=== PATIENT | female | born 1950 | race Caucasian/White ===

== ENCOUNTER 2016-11-11 18:32 | Emergency (ER) | payer MEDICARE, OTHER ==
[2016-11-11] MEDS ORDERED: Aspirin 81 MG Tab.Chew PO ONE (19:05)
[2016-11-11] MEDS ORDERED: Nitroglycerin 0.4 MG Tab.SL SL ONE ×2 (19:05→19:33)
--- NOTE | 2016-11-11 19:20 | EDM.PDOC ---
ED HPI GENERAL MEDICAL PROBLEM - General Chief Complaint: Chest Pain Stated Complaint: CHEST PAINS,ACHY IN JAW, [phone] Time Seen by Provider: 11/11/16 19:05 Source of Information: Reports: Patient History Limitations: Reports: No Limitations - History of Present Illness INITIAL COMMENTS - FREE TEXT/NARRATIVE: c/o upper midsternal chest pain radiating to jaw for 1.5 hours. Took one nitro [employer] with partial sx relief. On presentation pain 6/10 now 1/10 still achey in jaw area. 2 Previous NH. Stent posterior heart and one in femoral artery. Hx COPD. New carpet in [facility], questions chest pain from heart or reaction to glue smell. [place] started. No nausea. Has not had to use nitro previously. Stents and NH's 2007 and 2009 . Also Diabetic on insulin Primary care in [place]. Chest Pain Score (Numeric/FACES): 4 - Related Data Allergies Allergy/AdvReac Type Severity Reaction Status Date / Time metoprolol Allergy Bronchospas Verified 11/11/16 18:44 ms varenicline [From Chantix] Allergy Hallucinati Verified 11/11/16 18:44 ons Home Meds: Home Meds Clopidogrel [Plavix] 75 mg PO DAILY 11/11/16 [History] Diclofenac Potassium [Zipsor] 25 mg PO DAILY 11/11/16 [History] Fluticasone/Salmeterol [Advair Hfa 230-21 Mcg Inhaler] 8 gm INH DAILY 11/11/16 [ History] Ibuprofen [Motrin] 800 mg PO BID 11/11/16 [History] Insulin Glarg,Human.Rec.Analog [LantUS] 40 unit SQ BEDTIME 11/11/16 [History] Lisinopril/Hydrochlorothiazide [Lisinopril-Hctz 10-12.5 mg Tab] 0.5 tab PO DAILY 11/11/16 [History] Nitroglycerin [Nitrostat] 0.4 mg SL PRN 11/11/16 [History] Pantoprazole Sodium [Protonix] 40 mg PO DAILY 11/11/16 [History] Past Medical History Cardiovascular History: Reports: Hypertension, Stents Respiratory History: Reports: COPD Gastrointestinal History: Reports: GERD Endocrine/Metabolic History: Reports: Diabetes, Type II - Past Surgical History Cardiovascular Surgical History: Reports: Coronary Artery Stent, Other (See Below) Other Cardiovascular Surgeries/Procedures: fem stent right Musculoskeletal Surgical History: Reports: Other (See Below) Other Musculoskeletal Surgeries/Procedures:: laminectomy Social & Family History - Family History Family Medical History: Noncontributory - Tobacco Use Smoking Status *Q: Current Every Day Smoker Years of Tobacco use: 48 Packs/Tins Daily: 1 - Caffeine Use Caffeine Use: Reports: Coffee - Recreational Drug Use Recreational Drug Use: No ED ROS GENERAL - Review of Systems Review Of Systems: See Below Constitutional: Reports: No Symptoms HEENT: Reports: No Symptoms Respiratory: Reports: Other (upper chest feels tight chronic cough) Cardiovascular: Reports: Chest Pain. Denies: Edema, Lightheadedness, Orthopnea GI/Abdominal: Reports: No Symptoms, Abdominal Pain : Reports: No Symptoms Musculoskeletal: Reports: No Symptoms Skin: Reports: No Symptoms Neurological: Reports: No Symptoms ED EXAM, GENERAL - Physical Exam Exam: See Below Exam Limited By: No Limitations General Appearance: Alert, Anxious, Mild Distress, Obese Eye Exam: Bilateral Eye: EOMI, PERRL Ears: Normal External Exam, Normal TMs Nose: Normal Inspection Throat/Mouth: Normal Inspection Head: Atraumatic, Normocephalic Neck: Normal Inspection Respiratory/Chest: No Respiratory Distress, Crackles (fine bilateral bases, end pahse exp wheeze left base) Cardiovascular: Normal Peripheral Pulses, Regular Rate, Rhythm, No Murmur GI/Abdominal: Normal Bowel Sounds, Soft Back Exam: Normal Inspection Extremities: Normal Inspection, Pedal Edema (trace) Neurological: Alert, Oriented, Normal Cognition Psychiatric: Normal Affect Skin Exam: Warm, Dry, Intact, Other (face flushed) Course - Vital Signs Last Recorded V/S: Last Vital Signs Temp 96.7 F 11/11/16 20:01 Pulse 88 11/11/16 21:38 Resp 18 11/11/16 21:38 BP 137/78 11/11/16 21:38 Pulse Ox 99 11/11/16 21:38 - Orders/Labs/Meds Labs: Laboratory Tests 11/11/16 11/11/16 11/11/16 Range/Units 18:45 18:45 18:45 WBC 11.5 H (5.0-10.0) 10^3/uL RBC 4.07 L (4.2-5.4) 10^6/uL Hgb 12.3 (12.0-16.0) g/dL Hct 36.2 L (37.0-47.0) % MCV 88.9 (80-100) fL MCH 30.2 (27.0-34.0) pg MCHC 34.0 (33.0-35.0) g/dL Plt Count 289 (150-450) 10^3/uL Neut % (Auto) 68.7 (42.2-75.2) % Lymph % (Auto) 21.6 (20.5-50.1) % [place] % (Auto) 7.8 (2-8) % Eos % (Auto) 1.5 (1.0-3.0) % Baso % (Auto) 0.4 (0.0-1.0) % PT 8.8 L (9.0-12.0) SEC INR 0.9 (0.9-1.2) Sodium 139 (135-145) mmol/L Potassium 3.8 (3.6-5.0) mmol/L Chloride 103 (101-111) mmol/L Carbon Dioxide 27.0 (21.0-31.0) mmol/L Anion Gap 12.8 BUN 17 (7-18) mg/dL Creatinine 1.1 (0.6-1.3) mg/dL Est Cr Clr Drug Dosing 39.79 mL/min Estimated GFR (MDRD) 50 BUN/Creatinine Ratio 15.45 Glucose 171 H (74-105) mg/dL Calcium 8.9 (8.4-10.2) mg/dl Total Bilirubin 0.4 (0.2-1.0) mg/dL AST 19 (10-42) IU/L ALT 15 (10-60) IU/L Alkaline Phosphatase 66 (42-121) IU/L CK-MB (CK-2) (0.4-4.7) ng/mL Troponin I 0.02 (0.00-0.02) ng/ml B-Natriuretic Peptide 61 (0-100) pg/ml Total Protein 6.8 (6.7-8.2) g/dl Albumin 3.8 (3.2-5.5) g/dl Globulin 3.0 Albumin/Globulin Ratio 1.27 Amylase 34 (28-100) U/L Lipase 31 (22-51) U/L Urine Color (YELLOW) Urine Appearance (CLEAR) Urine pH (5.0-9.0) Ur Specific [place] (1.005-1.030) Urine Protein (NEGATIVE) Urine Glucose (UA) (NEGATIVE) Urine Ketones (NEGATIVE) Urine Occult Blood (NEGATIVE) Urine Nitrite (NEGATIVE) Urine Bilirubin (NEGATIVE) Urine Urobilinogen (0.2-1.0) mg/dL Ur Leukocyte Esterase (NEGATIVE) Urine RBC /HPF Urine WBC (0-5/HPF) /HPF Ur Epithelial Cells /HPF Urine Bacteria (0-FEW/HPF) /HPF 11/11/16 11/11/16 Range/Units 18:45 20:09 WBC (5.0-10.0) 10^3/uL RBC (4.2-5.4) 10^6/uL Hgb (12.0-16.0) g/dL Hct (37.0-47.0) % MCV (80-100) fL MCH (27.0-34.0) pg MCHC (33.0-35.0) g/dL Plt Count (150-450) 10^3/uL Neut % (Auto) (42.2-75.2) % Lymph % (Auto) (20.5-50.1) % [place] % (Auto) (2-8) % Eos % (Auto) (1.0-3.0) % Baso % (Auto) (0.0-1.0) % PT (9.0-12.0) SEC INR (0.9-1.2) Sodium (135-145) mmol/L Potassium (3.6-5.0) mmol/L Chloride (101-111) mmol/L Carbon Dioxide (21.0-31.0) mmol/L Anion Gap BUN (7-18) mg/dL Creatinine (0.6-1.3) mg/dL Est Cr Clr Drug Dosing mL/min Estimated GFR (MDRD) BUN/Creatinine Ratio Glucose (74-105) mg/dL Calcium (8.4-10.2) mg/dl Total Bilirubin (0.2-1.0) mg/dL AST (10-42) IU/L ALT (10-60) IU/L Alkaline Phosphatase (42-121) IU/L CK-MB (CK-2) 2.60 (0.4-4.7) ng/mL Troponin I (0.00-0.02) ng/ml B-Natriuretic Peptide (0-100) pg/ml Total Protein (6.7-8.2) g/dl Albumin (3.2-5.5) g/dl Globulin Albumin/Globulin Ratio Amylase (28-100) U/L Lipase (22-51) U/L Urine Color Yellow (YELLOW) Urine Appearance Clear (CLEAR) Urine pH 6.0 (5.0-9.0) Ur Specific [place] 1.010 (1.005-1.030) Urine Protein Negative (NEGATIVE) Urine Glucose (UA) Negative (NEGATIVE) Urine Ketones Negative (NEGATIVE) Urine Occult Blood Negative (NEGATIVE) Urine Nitrite Negative (NEGATIVE) Urine Bilirubin Negative (NEGATIVE) Urine Urobilinogen 0.2 (0.2-1.0) mg/dL Ur Leukocyte Esterase Negative (NEGATIVE) Urine RBC 0-5 /HPF Urine WBC 0-5 (0-5/HPF) /HPF Ur Epithelial Cells Few /HPF Urine Bacteria Occasional (0-FEW/HPF) /HPF Meds: Medications Discontinued Medications Generic Name Dose Route Start Last Admin Trade Name Sachaq PRN Reason Stop Dose Admin Aspirin 324 mg 11/11/16 19:05 11/11/16 19:12 Aspirin PO 11/11/16 19:06 324 mg ONETIME ONE Administration Heparin Sodium (Porcine) 5,000 units 11/11/16 20:41 11/11/16 20:47 Heparin Sodium IVPUSH 11/11/16 20:42 5,000 units ONETIME ONE Administration Heparin Sodium/Dextrose 25,000 units in 500 mls @ 19.595 mls/hr 11/11/16 20: 40 11/11/16 20:55 Heparin 25,000 Units In D5w 500 Ml IV 11/12/16 22:10 12 units/kg/hr TITRATE ONE 19.595 mls/hr Protocol Administration 12 UNITS/KG/HR Nitroglycerin 0.4 mg 11/11/16 19:05 11/11/16 19:13 Nitrostat SL 11/11/16 19:06 0.4 mg ONETIME ONE Administration Nitroglycerin 0.4 mg 11/11/16 19:33 11/11/16 19:36 Nitrostat SL 11/11/16 19:34 0.4 mg ONETIME ONE Administration - Radiology Interpretation Free Text/Narrative:: CXR negative - Re-Assessments/Exams Free Text/Narrative Re-Assessment/Exam: 11/12/16 00:38 Relief of chest and jaw pain with [address] depression in AVL and V5 resolved with resolution of pain. Dr. Annetta Baez consulted. Agree to accept for further evaluation of chest pain with prior cardiac hx and risk factor of COPD and DM. Tx via LRAS stable.condition Departure - Departure Time of Disposition: 22:10 Disposition: DC/Tfer to Acute Hospital 02 Reason for Transfer *Q: Other Condition: Fair Clinical Impression: Unstable angina Referrals: PCP,Not In Area [Primary Care Provider] - Forms: ED Department Discharge
[2016-11-11] MEDS ORDERED: Heparin Sodium/D5W 25,000 UNITS/500 ML BAG IV ONE (20:40)
[2016-11-11] MEDS ORDERED: Heparin Sodium 5,000 Units/ML Vial IVPUSH ONE (20:41)
[2016-11-11 21:46] VITALS: BP 137/78
--- NOTE | 2016-12-02 11:41 | EKG ---
11/11/2016 - FLORA SHELLEY - FINDINGS: EKG shows sinus tachycardia. Mild ST-segment depression in lateral leads. [facility] /[id number]
--- NOTE | 2016-12-02 11:41 | EKG ---
11/11/2016 - FLORA SHELLEY - TIME OF EK hours. EKG shows normal sinus rhythm. [facility] /[id number]
== END 2016-11-11 22:11 ==
LOC: DL.ED 18:32
DX: I20.0 Unstable angina (principal); I10 Essential (primary) hypertension; J44.9 Chronic obstructive pulmonary disease, unspecified; K21.9 Gastro-esophageal reflux disease without esophagitis; E11.9 Type 2 diabetes mellitus without complications; F17.210 Nicotine dependence, cigarettes, uncomplicated; Z88.8 Allergy status to other drugs, medicaments and biological substances; Z95.5 Presence of coronary angioplasty implant and graft; Z79.899 Other long term (current) drug therapy; I25.2 Old myocardial infarction
CPT/HCPCS: 36415; 71010; 80053; 81001; 82150; 82553; 83690; 83880; 84484; 85025; 85610; 96365; 96366; 96376; 99285; A9270; J1644